=== PATIENT | male | born 1970 | race Caucasian/White ===

== ENCOUNTER → 2017-01-25 | Outpatient (CLI) | payer BC ==
--- NOTE | 2017-01-25 17:42 | XR ---
EXAMINATION TYPE: XR chest 2V DATE OF EXAM: 01/25/2017 COMPARISON: 03/01/2009 HISTORY: Chest pain TECHNIQUE: Frontal and lateral views of the chest are obtained. FINDINGS: Heart and mediastinum are normal. Lungs are clear. Diaphragm is normal. Bony thorax is int act. IMPRESSION: Normal chest. No change.
== END ==
LOC: RADXRMAIN 16:40
PROVIDERS: ATTEND Internal Medicine
DX: R07.89 Other chest pain (principal)
CPT/HCPCS: 71020

== ENCOUNTER 2019-08-17 13:46 | Emergency (ER) | payer BC ==
[2019-08-17 13:58] VITALS: BP 130/79; PULSE 79; RESP 18; TEMP 98.2
[2019-08-17] MEDS ORDERED: DIPH,PERTUS(ACELL)TETVAC-LF 0.5 ML VIAL IM ONE (14:02)
--- NOTE | 2019-08-17 14:54 | ED ---
Skin/Abscess/FB HPI - General Chief complaint: Skin/Abscess/Foreign Body Stated complaint: Finger lacerations Time Seen by Provider: 08/17/19 14:31 Source: patient Mode of arrival: ambulatory Limitations: no limitations - History of Present Illness Initial comments: Patient is a 49-year-old male presenting to the emergency room with a chief complaint of laceration. Patient reports he was working on drywall when he accidentally cut his fourth and fifth digits. Patient reports there is some swelling at the PIP of the left fourth digit and he is unable to remove the ring. Patient denies any numbness or tingling. Tetanus status is up-to-date. Reports the pain is minimal but is exacerbated with palpation. Reports some bleeding at the site of injury. Denies taking medication to alleviate the symptoms. Patient is not on blood thinners. - Related Data Allergies Allergy/AdvReac Type Severity Reaction Status Date / Time No Known Allergies Allergy Verified 08/17/19 13:58 Review of Systems ROS Statement: Those systems with pertinent positive or pertinent negative responses have been documented in the HPI. ROS Other: All systems not noted in ROS Statement are negative. Past Medical History Past Medical History: No Reported History History of Any Multi-Drug Resistant Organisms: None Reported Past Surgical History: Ablation Past Psychological History: No Psychological Hx Reported Smoking Status: Never smoker Past Alcohol Use History: Occasional Past Drug Use History: None Reported General Exam Limitations: no limitations General appearance: alert, in no apparent distress Head exam: Present: atraumatic, normocephalic, normal inspection Eye exam: Present: normal appearance Pupils: Present: normal accommodation ENT exam: Present: normal exam, mucous membranes moist Neck exam: Present: normal inspection, full ROM Respiratory exam: Present: normal lung sounds bilaterally Cardiovascular Exam: Present: regular rate, normal rhythm, normal heart sounds Extremities exam: Present: full ROM (Full range of motion in digits.), tenderness (Some tenderness), normal capillary refill, joint swelling (Left fourth digit PIP mild swelling.), other (+2 ulnar and radial pulses bilaterally.). Absent: normal inspection (2 small, superficial lacerations in the posterior aspect of left fourth and fifth digit. Full range of motion of the digits.) Back exam: Present: normal inspection, full ROM Neurological exam: Present: alert, oriented X3 Psychiatric exam: Present: normal affect, normal mood Skin exam: Present: warm, dry, intact, normal color Course Vital Signs 08/17/19 13:56 Temperature 98.2 F Pulse Rate 79 Respiratory 18 Rate Blood Pressure 130/79 O2 Sat by Pulse 96 Oximetry Procedures - Laceration Laceration #1 Consent Obtained: verbal consent Indication: laceration Site: hand (Left fourth digit) Size (cm): 1 Description: linear Depth: simple, single layer Sedation/Analgesia: none Anesthetic Used: lidocaine 1% Anesthesia Technique: local infiltration Amount (mls): 5 Pre-repair: irrigated extensively Type of Sutures: nylon Size of Sutures: 4-0 Number of Sutures: 2 Technique: simple, interrupted Patient Tolerated Procedure: well, no complications Laceration #2 Consent Obtained: verbal consent Indication: laceration Site: hand (Left fifth digit) Size (cm): 1 Description: linear Depth: simple, single layer Sedation/Analgesia: none Anesthetic Used: lidocaine 1% Anesthesia Technique: local infiltration Amount (mls): 5 Pre-repair: irrigated extensively Type of Sutures: nylon Size of Sutures: 4-0 Number of Sutures: 2 Technique: simple, interrupted Patient Tolerated Procedure: well, no complications Medical Decision Making - Medical Decision Making patient is a 49-year-old male presenting to the emergency department with chief complaint of a laceration. On exam patient has 2 lacerations one on the left fourth digit and he had on the fifth fourth digit. He has full range of motion in both of his fingers. Neurovascularly intact. Normal capillary refill. +2 ulnar radial pulses bilaterally. Both laceration sites were repaired with 2 sutures each. Patient given tetanus vaccination. Patient advised about wound care. Strict return parameters were thoroughly discussed with patient was understanding and agreeable. Patient advised to return to emergency department 7-10 days for suture removal. Case discussed with physician. Disposition Clinical Impression: Laceration of finger of left hand Disposition: HOME SELF-CARE Condition: Stable Instructions (If sedation given, give patient instructions): Care For Your Stitches (DC), Laceration (DC) Additional Instructions: Please follow proper laceration instructions. Please return to emergency department in 7-10 days for suture removal. Is patient prescribed a controlled substance at d/c from ED?: No Referrals: Yesy Rodriguez DO [Primary Care Provider] - 1-2 days Time of Disposition: 14:54
[2019-08-17] MEDS ORDERED: LIDOCAINE 1% INJ 10MG/ML (20 ML MDV) SQ ONE (14:55)
== END 2019-08-17 15:39 | disposition home or self-care (01) ==
LOC: EC 13:46
DX: S61.215A Laceration without foreign body of left ring finger without damage to nail, initial encounter (principal); S61.217A Laceration without foreign body of left little finger without damage to nail, initial encounter; Z23 Encounter for immunization; W26.8XXA Contact with other sharp object(s), not elsewhere classified, initial encounter
CPT/HCPCS: 90715; 99282; 12001; 90471; J2001; 99285

== ENCOUNTER 2024-03-04 21:43 | Emergency (ER) | payer BC ==
--- NOTE | 2024-03-04 22:35 | ED ---
General Adult HPI - General Chief complaint: Extremity Injury, Lower Stated complaint: Left foot injury Time Seen by Provider: 03/04/24 21:51 Source: patient Mode of arrival: ambulatory Limitations: no limitations - History of Present Illness Initial comments: Dictation was produced using [employer] dictation software. please excuse any grammatical, word or spelling errors. Chief Complaint: 53-year-old male presents with puncture wound to the left foot History of Present Illness: Patient is a 53-year-old male earlier today he was walk around barefoot. There was some old deck boards. He took a step and felt a sharp object punctured his left heel. Patient does not have any updated tetanus. Patient N denies s any comorbidities. States that the nail did appear to be endy The ROS documented in this emergency department record has been reviewed and confirmed by me. Those systems with pertinent positive or negative responses have been documented in the HPI. All other systems are other negative and/or noncontributory. - Related Data Previous Rx's Medication Instructions Recorded Cephalexin [Keflex] 500 mg PO Q6HR 5 Days #20 cap 03/05/24 Allergies Allergy/AdvReac Type Severity Reaction Status Date / Time No Known Allergies Allergy Verified 03/04/24 21:47 Review of Systems ROS Statement: Those systems with pertinent positive or pertinent negative responses have been documented in the HPI. ROS Other: All systems not noted in ROS Statement are negative. Past Medical History Past Medical History: No Reported History History of Any Multi-Drug Resistant Organisms: None Reported Past Surgical History: Ablation Past Psychological History: No Psychological Hx Reported Smoking Status: Never smoker Past Alcohol Use History: Occasional Past Drug Use History: None Reported General Exam - General Exam Comments Initial Comments: General: Well-appearing, nontoxic, no acute distress. Head: Normocephalic, atraumatic Eyes: PERRLA, EOMI ENT: Airway patent Chest: Nonlabored breathing Skin: No visual rash, normal skin tone Neuro: Alert and oriented 3 Musculoskeletal: No gross abnormalities Left foot: Puncture wound to the heel Limitations: no limitations Course Vital Signs 03/04/24 21:44 Temperature 97.4 F L Pulse Rate 68 Respiratory 14 Rate Blood Pressure 128/80 O2 Sat by Pulse 96 Oximetry Medical Decision Making - Medical Decision Making Was pt. sent in by a medical professional or institution (, PA, RELOCATION COMMISSIONER, urgent care, hospital, or [facility]...) When possible be specific @ -No Did you speak to anyone other than the patient for history (EMS, parent, family, police, friend...)? What history was obtained from this source @ -No Did you review nursing and triage notes (agree or disagree)? Why? @ -I reviewed and agree with nursing and triage notes Were old charts reviewed (outside hosp., previous admission, EMS record, old EKG, old radiological studies, urgent care reports/EKG's, [facility] records)? Report findings @ -No old charts were reviewed Differential Diagnosis (chest pain, altered mental status, abdominal pain women, abdominal pain men, vaginal bleeding, musculoskeletal, weakness, fever, dyspnea, syncope, headache, dizziness, GI bleed, back pain, seizure, CVA, palpatations, mental health)? @ -Not applicable EKG interpreted by me (3pts min.). @ -None done X-rays interpreted by me (1pt min.). @ -Foot x-ray is unremarkable CT interpreted by me (1pt min.). @ -None done U/S interpreted by me (1pt. min.). @ -None done What testing was considered but not performed or refused? (CT, X-rays, U/S, labs)? Why? @ -None What meds were considered but not given or refused? Why? @ -None Was smoking cessation discussed for >3mins.? @ -No Were there social determinants of health that impacted care today? How? (Homelessness, low income, unemployed, alcoholism, drug addiction, transportation, low edu. Level, literacy, decrease access to med. care, [facility], rehab)? @ -No Was there de-escalation of care discussed even if they declined (Discuss DNR or withdrawal of care, Hospice)? DNR status @ -No What co-morbidities impacted this encounter? (DM, HTN, Smoking, COPD, CAD, Cancer, CVA, ARF, Chemo, Hep., AIDS, mental health diagnosis, sleep apnea, morbid obesity)? @ -None Was patient admitted / discharged? Hospital course, mention meds given and route, prescriptions, significant lab abnormalities, going to OR and other p ertinent info. @ -53-year-old male with puncture wound to the left foot. Vital signs stable. Physical examination benign. X-rays unremarkable. Patient tetanus updated given prophylactic Keflex. Patient discharged Did you discuss the management of the patient with other professionals (professionals i.e. , PA, RELOCATION COMMISSIONER, lab, RT, psych nurse, social organization professor, telecom specialist, teacher, housing management officer, case checker)? Give summary @ -No Was critical care preformed (if so, how long)? @ -No Undiagnosed new problem with uncertain prognosis? @ -No Drug Therapy requiring intensive monitoring for toxicity (Heparin, Nitro, Insulin, Cardizem)? @ -No Were any procedures done? @ -No Diagnosis/symptom? Acute, or Chronic, or Acute on Chronic? Uncomplicated (without systemic symptoms) or Complicated (systemic symptoms)? @ -Left foot puncture wound Side effects of treatment? @ -No Exacerbation, Progression, or Severe Exacerbation? @ -No Poses a threat to life or bodily function? How? (Chest pain, [place], [place], pneumonia, PE, COPD, DKA, ARF, appy, cholecystitis, CVA, Diverticulitis, Homicidal, Suicidal, threat to staff... and all critical care pts) @ -No Disposition Clinical Impression: Puncture wound of foot Disposition: HOME SELF-CARE Condition: Good Instructions (If sedation given, give patient instructions): Puncture Wound (DC) Prescriptions: Cephalexin [Keflex] 500 mg PO Q6HR 5 Days #20 cap Is patient prescribed a controlled substance at d/c from ED?: No Referrals: Yesy Rodriguez DO [Primary Care Provider] - 1-2 days Time of Disposition: 00:01
[2024-03-04] MEDS: DIPH,PERTUS(ACELL)TETVAC-LF 0.5 ML VIAL IM ONE (23:44)
[2024-03-05] MEDS: CEPHALEXIN 500MG STARTER PACK 4 CAP BTL PO STA (00:13)
[2024-03-05 00:28] VITALS: BP 124/82; PULSE 62; RESP 18; TEMP 97.6
--- NOTE | 2024-03-05 00:52 | XR ---
EXAM: XR Left Foot Complete, 3 or More Views CLINICAL HISTORY: ITS.REASON XR Reason: puncture wound heel TECHNIQUE: Frontal, lateral and oblique views of the left foot. COMPARISON: No previous studies. FINDINGS: Bones/joints: Mild to moderate osteoarthritic changes at the DIP and PIP joints are noted. 0.5 cm anterior heel spur. Osseous structures and soft tissues are unremarkable. No acute fracture. No dislocation. Soft tissues: See above. IMPRESSION: 1. Osteoarthritic changes. 2. No acute fracture or dislocation. 3. Heel spur. 4. If there is concern for cellulitis or osteomyelitis, particularly given the patient's history, MRI imaging should be performed.
== END 2024-03-05 00:21 | disposition home or self-care (01) ==
LOC: EC 21:43
DX: S91.332A Puncture wound without foreign body, left foot, initial encounter (principal); X58.XXXA Exposure to other specified factors, initial encounter; Z23 Encounter for immunization
CPT/HCPCS: 90471; 90715; 99283